=== PATIENT | female | born 1945 | race Caucasian/White ===

== ENCOUNTER 2017-03-09 11:08 | Emergency (ER) | payer MEDICARE, OTHER ==
[~2017-03-09] VITALS: Ht 157.5 cm; Wt 57.0 kg
[2017-03-09] MEDS ORDERED: SODIUM CHLORIDE 0.9% FLUSH 10 ML FLUSH IVF PRN (11:30)
--- NOTE | 2017-03-09 11:34 | PD ---
HPI Chief Complaint: Chest Pain Time Seen by Provider: 11:14 Travel History International Travel<30 days: No Contact w/Intl Traveler<30days: No History of Present Illness HPI Is a 71-year-old woman presents to the emergency department after she developed an episode of feeling hot and flushed with associated chest pain about an hour and a half ago. States she was driving when she began to feel hot and dizzy. She started getting pressure-like pain in her chest. She describes a tightness. She felt like she couldn't breathe get a deep breath. She is a history of panic attacks and states this felt somewhat her previous panic attacks. She took an aspirin, and Xanax. She states she's been under a lot of stress recently with her daughter's divorce which is involving her grandchildren. Only medical history is increased platelets for which she is on Hydrea. She otherwise has been feeling generally well and healthy. She has no history of heart disease. She's had previous workups including stress test which she been negative in the setting of panic attacks. She has been feeling generally well. She Dances for a couple hours every day and has not had any change in her exercise tolerance. No recent chest pain or trouble breathing. No history of DVT or PE. No swelling in her legs. No other complaints. History Past Medical History Narrative Medical Increased platelets, sounds like essential thrombocytosis, on Hydrea Social History Tobacco Use: No Allergies-Medications (Allergen,Severity, Reaction): Coded Allergies: Percocet (Verified Allergy, Severe, 03/09/17) Reported Meds & Prescriptions Reported Meds & Active Scripts Active Reported Hydrea (Hydroxyurea) 500 Mg Cap 500 Mg PO DAILY Xanax (Alprazolam) 0.25 Mg Tab 0.25 Mg PO Q4H PRN Aspirin 325 Mg Tab 325 Mg PO ONCE Review of Systems Except as stated in HPI: all other systems reviewed are Neg Physical Exam Narrative GENERAL: Well-appearing 71-year-old woman, no acute distress. SKIN: Focused skin assessment warm/dry. HEAD: Atraumatic. Normocephalic. EYES: Pupils equal and round. No scleral icterus. No injection or drainage. ENT: No nasal bleeding or discharge. Mucous membranes pink and moist. NECK: Trachea midline. No JVD. CARDIOVASCULAR: Regular rate and rhythm. No murmur appreciated. RESPIRATORY: No accessory muscle use. Clear to auscultation. Breath sounds equal bilaterally. GASTROINTESTINAL: Abdomen soft, non-tender, nondistended. Hepatic and splenic margins not palpable. MUSCULOSKELETAL: No obvious deformities. No clubbing. No cyanosis. No edema. NEUROLOGICAL: Awake and alert. No obvious cranial nerve deficits. Motor grossly within normal limits. Normal speech. PSYCHIATRIC: Slightly anxious but a resolving. Data Data Last Documented VS Vital Signs Date Time Temp Pulse Resp B/P Pulse Ox O2 Delivery O2 Flow Rate FiO2 03/09/17 13:25 70 18 113/72 Room Air 99 03/09/17 11:35 100 Orders Electrocardiogram (03/09/17 11:25) Complete Blood Count With Diff (03/09/17 11:25) Comprehensive Metabolic Panel (03/09/17 11:25) Magnesium (Mg) (03/09/17 11:25) Troponin I (03/09/17 11:25) Ecg Monitoring (03/09/17 11:25) Iv Access Insert/Monitor (03/09/17 11:25) Oximetry (03/09/17 11:25) Oxygen Administration (03/09/17 11:25) Sodium Chloride 0.9% Flush (Ns Flush) (03/09/17 11:30) Chest, Pa & Lat (03/09/17 11:25) Diet Regular Basic (03/09/17 Lunch) Troponin I (03/09/17 14:20) Labs Laboratory Tests Test 03/09/17 03/09/17 11:20 14:17 White Blood Count 5.2 TH/MM3 Red Blood Count 4.29 MIL/MM3 Hemoglobin 13.7 GM/DL Hematocrit 39.8 % Mean Corpuscular Volume 92.9 FL Mean Corpuscular Hemoglobin 31.9 PG Mean Corpuscular Hemoglobin 34.3 % Concent Red Cell Distribution Width 15.0 % Platelet Count 340 TH/MM3 Mean Platelet Volume 7.8 FL Neutrophils (%) (Auto) 52.6 % Lymphocytes (%) (Auto) 30.5 % Monocytes (%) (Auto) 12.0 % Eosinophils (%) (Auto) 4.0 % Basophils (%) (Auto) 0.9 % Neutrophils # (Auto) 2.8 TH/MM3 Lymphocytes # (Auto) 1.6 TH/MM3 Monocytes # (Auto) 0.6 TH/MM3 Eosinophils # (Auto) 0.2 TH/MM3 Basophils # (Auto) 0.0 TH/MM3 CBC Comment DIFF FINAL Differential Comment Sodium Level 142 MEQ/L Potassium Level 3.9 MEQ/L Chloride Level 105 MEQ/L Carbon Dioxide Level 27.0 MEQ/L Anion Gap 10 MEQ/L Blood Urea Nitrogen 21 MG/DL Creatinine 0.91 MG/DL Estimat Glomerular Filtration 61 ML/MIN Rate Random Glucose 97 MG/DL Calcium Level 9.8 MG/DL Magnesium Level 2.4 MG/DL Total Bilirubin 0.4 MG/DL Aspartate Amino Transf 16 U/L (AST/SGOT) Alanine Aminotransferase 19 U/L (ALT/SGPT) Alkaline Phosphatase 53 U/L Troponin I LESS THAN 0.02 LESS THAN 0.02 NG/ML NG/ML Total Protein 7.3 GM/DL Albumin 3.9 GM/DL MDM Medical Decision Making Medical Screen Exam Complete: Yes Emergency Medical Condition: Yes Interpretation(s) My review of EKG: Normal sinus rhythm at a rate of 64, normal axis, normal intervals, no ischemia. LABS: CBC unremarkable. CMP generally unremarkable. BUN a little bit up. Troponin negative. 2 Chest x-ray negative Differential Diagnosis ACS, panic attack, PE, dissection, other Narrative Course Medical decision making INITIAL: This 71-year-old woman presents to the emergency department with feeling hot and dizzy with some tightness in her chest. It sounds like panic attack. She had panic attacks before. She's been under an undue amount of stress recently. Previous cardiac workups have been negative. We'll plan on labs, EKG, chest x-ray, and we'll do a second troponin. Expect it'll be negative initial follow-up with her primary doctor at home. She agrees to return for any worsening symptoms. She would prefer not to stay overnight for chest pain Center and stress test, although this was discussed. Diagnosis Primary Impression: Chest pain Additional Impression: Anxiety Additional Instructions: Follow-up with her primary care doctor when return home. Return to the emergency department worsening chest pain, trouble breathing, or any other new or worsening symptoms. Disposition: 01 DISCHARGE HOME Condition: Stable Jerry Andrews MD Mar 09, 2017 11:34
[2017-03-09 11:35] VITALS: O2SAT 100
[2017-03-09] MEDS ORDERED: ALPR.25 PO (11:38)
[2017-03-09] MEDS ORDERED: HYDR500C PO (11:38)
[2017-03-09] MEDS ORDERED: ASPI325T PO (11:38)
[2017-03-09 11:41] LABS: AUTOMATED NEUTROPHIL # 2.8 TH/MM3 (1.8-7.7); BASOPHIL % 0.9 % (0.0-2.0); EOSINOPHIL # 0.2 TH/MM3 (0-0.4); HEMATOCRIT 39.8 % (35.0-46.0); HEMO FLAGS DIFF FINAL; LYMPH % 30.5 % (9.0-44.0); LYMPHOCYTE # 1.6 TH/MM3 (1.0-4.8); MEAN CELL VOLUME 92.9 FL (80.0-100.0); MEAN CORPUSCULAR HEMOGLOBIN 31.9 PG (27.0-34.0); MEAN CORPUSCULAR HGB CONC 34.3 % (32.0-36.0); NEUT % 52.6 % (16.0-70.0); PLATELET COUNT 340 TH/MM3 (150-450); RED BLOOD COUNT 4.29 MIL/MM3 (4.00-5.30); WHITE BLOOD COUNT 5.2 TH/MM3 (4.0-11.0)
[2017-03-09 11:46] LABS: CHLORIDE 105 MEQ/L (98-107); POTASSIUM 3.9 MEQ/L (3.5-5.1); SODIUM (NA) 142 MEQ/L (136-145)
[2017-03-09 11:50] LABS: ANION GAP 10 MEQ/L (5-15); BLOOD UREA NITROGEN 21 MG/DL (7-18); MAGNESIUM 2.4 MG/DL (1.5-2.5)
[2017-03-09 11:53] LABS: ALT (GPT) 19 U/L (10-53); AST (GOT) 16 U/L (15-37); GLOMERULAR FILTRATION RATE 61 ML/MIN (>89)
[2017-03-09 11:54] LABS: TOTAL BILIRUBIN ADULT 0.4 MG/DL (0.2-1.0)
[2017-03-09 11:56] LABS: ALKALINE PHOSPHATASE 53 U/L (45-117)
--- NOTE | 2017-03-09 12:27 | RADHPO ---
EXAM DATE/TIME: 03/09/2017 12:04 [facility] COMPARISON: No previous studies available for comparison. INDICATIONS : Chest tightness, short of breath, dizziness. MEDICAL HISTORY : None. SURGICAL HISTORY : Tubal ligation. Ovarian cyst removal. Breast biopsy. ENCOUNTER: Initial ACUITY: 1 day PAIN SCORE: 4/10 LOCATION: Left upper chest FINDINGS: PA and lateral views of the chest demonstrate the lungs to be symmetrically aerated without evidence of mass, infiltrate or effusion. The cardiomediastinal contours are unremarkable. Osseous structure s are intact. CONCLUSION: No acute disease. Braxton Stevens MD on March 09, 2017 at 12:25 Board Certified Radiologist. This report was verified electronically.
[2017-03-09 13:25] VITALS: BP 113/72; PULSE 70; RESP 18
[2017-03-09 14:55] VITALS: BP 132/77
--- NOTE | 2017-03-10 16:08 | EKG ---
Date Performed: 03/09/2017 Time Performed: 11:15:16 PTAGE: 71 years EKG: Sinus rhythm Normal ECG NO PREVIOUS TRACING DOCTOR: Rohan Lora Interpretating Date/Time 03/10/2017 16:06:38
== END 2017-03-09 14:57 | disposition home or self-care (01) ==
LOC: PHED 11:08
DX: R07.9 Chest pain, unspecified (principal); F41.9 Anxiety disorder, unspecified; R06.02 Shortness of breath; R42 Dizziness and giddiness; D47.3 Essential (hemorrhagic) thrombocythemia
CPT/HCPCS: 71020; 80053; 83735; 84484; 85025; 93005